=== PATIENT | male | born 1980 | race Caucasian/White ===

== ENCOUNTER 2018-01-23 18:20 | Emergency (ER) | payer OTHER ==
--- NOTE | 2018-01-23 18:58 | RADIOLOGY REPORT ---
EXAMINATION: XR CHEST CLINICAL INFORMATION: Chest pain. COMPARISON: None TECHNIQUE: 2 views of the chest were obtained. FINDINGS: No airspace opacities or pleural effusions are seen. The cardiomediastinal silhouette is normal. No acute osseous abnormality is seen. IMPRESSION: Clear lungs.
[2018-01-23 19:21] LABS: ABSOLUTE BASOPHIL COUNT 0 /CUMM (0.0-0.2); ABSOLUTE EOSINOPHIL COUNT 0.1 /CUMM (0.0-0.7); ABSOLUTE GRANULOCYTE CT 6.3 /CUMM (1.4-6.5); ABSOLUTE LYMPH COUNT 1.8 /CUMM (1.2-3.4); ABSOLUTE MONOCYTE COUNT 0.6 /CUMM (0.10-0.60); BASOPHIL % 0.3 % (0.0-2.0); EOSINOPHIL % 1.3 % (0-5); GRANULOCYTE % 70.9 % (42.2-75.2); HEMATOCRIT 48.8 % (42-52); MEAN CORPUSCULAR HGB 30.5 PG (27.0-31.0); MEAN CORPUSCULAR HGB CONC 33.5 G/DL (33.0-37.0); MEAN CORPUSCULAR VOLUME 90.9 FL (80.0-94.0); MEAN PLATELET VOLUME 8.9 FL (7.4-10.4); PLATELET COUNT 170 /CUMM (130-400); RBC DISTRIBUTION WIDTH 13.8 % (11.5-14.5); RED BLOOD CELL CT 5.37 /CUMM (4.70-6.10); WHITE BLOOD CELL COUNT 8.9 /CUMM (4.8-10.8)
--- NOTE | 2018-01-23 21:14 | ED CARDIAC/CP/PALPITATIONS ---
History of Present Illness General Chief Complaint: Chest Pain Stated Complaint: SIB WALK IN FOR CHEST PAIN, DIZZY Source: patient Exam Limitations: no limitations Vital Signs & Intake/Output Vital Signs & Intake/Output Vital Signs Date Time Temp Pulse Resp B/P B/P Pulse O2 O2 Flow FiO2 Mean Ox Delivery Rate 01/23 2230 98.2 63 20 139/86 99 Room Air 01/23 1838 91 20 146/83 98 ED Intake and Output 01/24 0000 01/23 1200 Intake Total 50 Output Total Balance 50 Intake, Oral 50 Allergies Coded Allergies: NO KNOWN ALLERGIES (08/24/13) NKA PER ANTIBIOTIC ORDER SHEET OF 08/24/13 ([facility]) Reconcile Medications Omeprazole 40 MG CAPSULE.DR 1 CAP PO DAILY ACID RELFUX Triage Note: PER PT 3 DAY HX OF SOB ,REFLUX AND CP SEEN AT WALK IN SENT TO ED PT REPORTS TUMS IMPROVE SYMPTOMS Triage Nurses Notes Reviewed? yes Onset: Abrupt Duration: day(s): (3), intermittent Timing: recent history Quality/Severity: burning Radiation: neck HPI: 37-year-old male comes into the emergency room for further evaluation of upper abdominal pain/chest pain. Burning pain and upper chest radiating up to his neck. Denies any fever chills. Reports some intermittent shortness of breath. Symptoms been going on for the last 3 days. The chest pain is intermittent. No correlation with food. Denies any radiation into his arms. Denies any vomiting. Denies smoking. Denies any past medical history. Denies any family history of coronary disease less than 55 years of age. He comes into the emergency room seeking further evaluation. (Jared Pinto) Past History Travel History Traveled to [place] past 21 day No Medical History Any Pertinent Medical History? see below for history Neurological: NONE EENT: NONE Cardiovascular: NONE Respiratory: NONE Gastrointestinal: NONE Hepatic: NONE Renal: NONE Musculoskeletal: NONE Psychiatric: NONE Endocrine: NONE Surgical History Surgical History: non-contributory Psychosocial History What is your primary language Kazakh Tobacco Use: Never used Family History Hx Contributory? Yes (Jared Pinto) Review of Systems Review of Systems Constitutional: Reports: no symptoms. EENTM: Reports: no symptoms. Respiratory: Reports: see HPI. Cardiovascular: Reports: see HPI. GI: Reports: see HPI. Genitourinary: Reports: no symptoms. Musculoskeletal: Reports: no symptoms. Skin: Reports: no symptoms. Neurological/Psychological: Reports: no symptoms. Hematologic/Endocrine: Reports: no symptoms. Immunologic/Allergic: Reports: no symptoms. All Other Systems: Reviewed and Negative (Jared Pinto) Physical Exam Physical Exam General Appearance: well developed/nourished, no apparent distress, alert, awake Head: atraumatic, normal appearance Eyes: Bilateral: normal appearance. Ears, Nose, Throat: normal ENT inspection, hearing grossly normal Neck: normal inspection Respiratory: normal breath sounds, no respiratory distress Cardiovascular: regular rate/rhythm Gastrointestinal: soft Back: normal inspection Extremities: normal inspection, normal range of motion, no edema Neurologic/Psych: awake, alert, oriented x 3, normal gait Skin: intact, normal color Core Measures ACS in differential dx? No CVA/TIA Diagnosis No Sepsis Present: No Sepsis Focused Exam Completed? No (Jared Pinto) Progress Differential Diagnosis: AMI, costochondritis, myocarditis, pancreatitis, pneumothorax, pulmonary embolism, unstable angina Plan of Care: Orders Procedure Date/time Status TROPONIN LEVEL 01/23 2200 Complete EKG 01/23 220 Active TROPONIN LEVEL 01/23 183 Complete D-DIMER 01/23 183 Complete COMPREHENSIVE METABOLIC PANEL 01/23 183 Complete CBC WITHOUT DIFFERENTIAL 01/23 1837 Complete EKG 01/23 1822 Active Laboratory Tests 01/23/18 2222: Troponin I < 0.01 01/23/18 1859: Anion Gap 8, Estimated GFR > 60, BUN/Creatinine Ratio 15.0, Glucose 90, Calcium 10.7 H, Total Bilirubin 1.1, AST 23, ALT 37, Alkaline Phosphatase 41, Troponin I < 0.01, Total Protein 7.7, Albumin 4.8, Globulin 2.9, Albumin/Globulin Ratio 1.7, D-Dimer High Sensitivty < 200, CBC w Diff NO MAN DIFF REQ, RBC 5.37, MCV 90.9, MCH 30.5, MCHC 33.5, RDW 13.8, MPV 8.9, Gran % 70.9, Lymphocytes % 20.5, Monocytes % 7.0, Eosinophils % 1.3, Basophils % 0.3, Absolute Granulocytes 6.3, Absolute Lymphocytes 1.8, Absolute Monocytes 0.6, Absolute Eosinophils 0.1, Absolute Basophils 0 Diagnostic Imaging: Viewed by Me: Radiology Read. Discussed w/RAD: Radiology Read. Radiology Impression: PATIENT: ZOYA LEON PRESENT AGE: 37 PATIENT ACCOUNT NO: [id number] : [id number] LOCATION: [facility] ORDERING PHYSICIAN: Jared DALEY SERVICE DATE: 01/23/18 EXAM TYPE: RAD - XRY-CHEST XRAY, TWO VIEWS EXAMINATION: XR CHEST CLINICAL INFORMATION: Chest pain. COMPARISON: None TECHNIQUE: 2 views of the chest were obtained. FINDINGS: No airspace opacities or pleural effusions are seen. The cardiomediastinal silhouette is normal. No acute osseous abnormality is seen. IMPRESSION: Clear lungs. DICTATED BY: Devin Damian MD DATE/TIME DICTATED:01/23/181852 UMBRELLA REPAIRER:DORENE DATE/TIME TRANSCRIBED:01/23/181852 CONFIDENTIAL, DO NOT COPY WITHOUT APPROPRIATE AUTHORIZATION. <Electronically signed in Other Vendor System> SIGNED BY: Devin Damian MD 01/23/181857 Initial ED EKG: normal sinus rhythm, rate (81) Repeat EKG: unchanged (Jared Pinto) Departure Departure Disposition: HOME OR SELF CARE Condition: Stable Clinical Impression Primary Impression: Chest pain Referrals: Patient Has No Primary Care Dr (PCP/Family) Nery DIAZ,Crispin Villanueva Additional Instructions: Take omeprazole as prescribed. follow-up with pelt inspector and insurance special agent. Return if any concerns worsening symptoms. Please go over all results of today's visit with your primary care doctor. Contact your primary care doctor to let them know you were here in the emergency room. There may be nonspecific findings which may not be related to your visit today here in the emergency room but may require further evaluation and chronic monitoring by your primary care doctor. If you had a laceration today the chance of foreign body always remains. You should follow-up with your primary care doctor for recheck in 3-5 days for a wound check. If you had an x-ray done there is a chance that a fracture could have been missed on initial read and you should follow-up with your primary care doctor for repeat x-rays if symptoms persist. If your blood pressure was elevated here in the emergency room please have rechecked by [facility] primary care doctor within the next 48. If you were prescribed a narcotic here in the emergency room or any type of controlled substances you're not allowed to drive while taking this medication or operate any type of heavy machinery. Narcotics can make you feel lightheaded dizziness nausea and can cause constipation. You may need to olive picker a stool softener. Thank you for choosing [facility] emergency room. Please return to the emergency room immediately if you have any other concerns worsening of symptoms. Departure Forms: Customer Survey General Discharge Information Prescriptions: Current Visit Scripts Omeprazole 1 CAP PO DAILY #30 CAP Comments 01/1718 Heart score is 0. 2 troponins negative. 2 unchanged EKGs. Patient to follow up with outpatient cardiology. Low suspicion for acute cardiac syndrome. Feel symptoms are more related to GI gastritis versus GERD versus peptic ulcer. Patient was started on high-dose PPI. Return if any other concerns. Patient understands and agrees a plan of care. He does not appear to be in any type of distress here in the emergency room. (Jared Pinto) PA/OFFICE SERVICES CLERK Co-Sign Statement Statement: ED Attending supervision documentation- [] I saw and evaluated the patient. I have also reviewed all the pertinent lab results and diagnostic results. I agree with the findings and the plan of care as documented in the PA's/OFFICE SERVICES CLERK's documentation. [X] I have reviewed the ED Record and agree with the PA's/OFFICE SERVICES CLERK's documentation. [] Additions or exceptions (if any) to the PAs/OFFICE SERVICES CLERK's note and plan are summarized below: [] (Torsten DIAZ,Devin Adorno) Critical Care Note Critical Care Note Critical Care Time: non-applicable (Jared Pinto)
[2018-01-23 22:30] VITALS: BP 139/86
[2018-01-23] MEDS ORDERED: OMEPRAZOLE40 M1 PO (23:10)
== END 2018-01-23 23:16 ==
LOC: ERH 18:20
PROVIDERS: Physician Assistant Medical
DX: R07.9 Chest pain, unspecified (principal); R10.10 Upper abdominal pain, unspecified
CPT/HCPCS: 71046; 93005; 93010